=== PATIENT | female | born 1950 | race Caucasian/White ===

== ENCOUNTER 2017-12-24 19:23 | Emergency (ER) | payer OTHER ==
[2017-12-24] MEDS: IBUPROFEN 600 MG TAB PO (22:35)
== END 2017-12-25 01:08 | disposition home or self-care (01) ==
LOC: FTE 12-25 01:08
DX: S90.31XA Contusion of right foot, initial encounter (principal); X58.XXXA Exposure to other specified factors, initial encounter; Y92.9 Unspecified place or not applicable
CPT/HCPCS: 73630; 99283-25